=== PATIENT | female | born 1940 | race Caucasian/White ===

== ENCOUNTER 2017-06-25 17:34 | Inpatient (IN) | payer MEDICARE, BC ==
[~2017-06-25] VITALS: Ht 162.6 cm; Wt 80.6 kg
[~2017-06-25 17:34] MED LIST: ALBU8.5H8 INH; APIX5TAB PO; BECL8.7A7 INH; BRIM5DRO3 EACHEYE; CALC-116 PO; CALC250T PO; CHOL500015 PO; DABI150C PO; DIGO250T PO; DILT180C53 PO; FURO-93 PO; HYDR-3237 PO; INDA75CA INH; LACT1CAP35 PO; LATA2.5D2 EACHEYE; MELA2.5T PO; MELA5TAB19 PO; MULT-658 PO; OMEG1CAP23 PO; OMEP-110 PO; OMEP20TA9 PO; PRAS25TA PO; PROG200C15 PO; THYR65TA2 PO; THYR90TA PO; UBID200C7 PO; estrogen cream VG; omega 3 PO; qvar INH; testosterone cream
[2017-06-25] MEDS ORDERED: ALBUTEROL/IPRATROPIUM 2.5MG/0.5MG, 3 ML ONE (18:26)
[2017-06-25 18:29] LABS: HEMATOCRIT 39.3 % (34.6-47.8); HEMOGLOBIN 12.8 g/dL (11.7-16.4); WHITE BLOOD COUNT 14.1 x10^3/uL (3.4-10)
[2017-06-25] MEDS ORDERED: SODIUM CHLORIDE FLUSH 10ML SYR IVF ONE (18:30)
[2017-06-25] MEDS ORDERED: ALBUTEROL/IPRATROPIUM 2.5MG/0.5MG, 3 ML NPPB ONE (18:30)
[2017-06-25] MEDS ORDERED: PIPERACILLIN/TAZO/PMX 4.5GM 100 ML IVPB ONE (18:30)
[2017-06-25] MEDS ORDERED: ACETAMINOPHEN 325 MG TABLET PO ONE (18:30)
[2017-06-25] MEDS ORDERED: ACETAMINOPHEN 325 MG TABLET ONE (18:32)
[2017-06-25] MEDS ORDERED: PIPERACILLIN/TAZO/PMX 3.375GM 0 ML ONE (18:32)
[2017-06-25 18:41] LABS: ASPARTATE AMINO TRANSFERASE 21 U/L (15-37); BLOOD UREA NITROGEN 14 mg/dL (7-18)
[2017-06-25 18:47] LABS: IS PT STATUS REG ER OR PRE ER? YES
[2017-06-25] MEDS ORDERED: SODIUM CHLORIDE FLUSH 10ML SYR IVF PRN (19:30)
[2017-06-25 21:30] VITALS: BP 150/70
[2017-06-25] MEDS ORDERED: ONDANSETRON ODT 4 MG PO PRN (21:30)
[2017-06-25] MEDS ORDERED: GUAIFENESIN/DM 200-20MG, 10ML UDC PO PRN (21:30)
[2017-06-25] MEDS ORDERED: ACETAMINOPHEN 325 MG TABLET PO PRN (21:30)
[2017-06-25] MEDS ORDERED: DIPHENHYDRAMINE 25 MG CAPSULE PO PRN (21:30)
[2017-06-25] MEDS ORDERED: DOCUSATE 100 MG CAPSULE PO PRN (21:30)
[2017-06-25] MEDS ORDERED: ENALAPRILAT 1.25 MG/ML, 2ML IVPush PRN (21:30)
[2017-06-25] MEDS ORDERED: TEMPLATE NON-FORMULARY MED. (Brimonidine Tartrate** (Alphagan P**) 1 DROP(S)) EACHEYE SCH (21:30)
[2017-06-26] MEDS: AZITHROMYCIN 500 MG in SODIUM CHLORIDE 0.9% 250 ML IV SCH
[2017-06-26] MEDS: methylPREDNISolone SOD SUCC 40 MG/ML IVPush SCH ×4 (00:01→16:58)
[2017-06-26] MEDS: ENOXAPARIN 40 MG/0.4 ML SQ SCH ×2 (00:02→21:13)
[2017-06-26] MEDS: OMEPRAZOLE 20 MG CAPSULE.DR PO SCH ×3 (00:02→21:15)
[2017-06-26] MEDS: MELATONIN 5 MG TABLET PO SCH ×2 (00:02→21:15)
[2017-06-26] MEDS: LATANOPROST OPHTH 0.005%, 2.5ML EACHEYE SCH ×2 (00:03→21:15)
[2017-06-26 01:53] VITALS: BP 149/69
[2017-06-26] MEDS: ALBUTEROL/IPRATROPIUM 2.5MG/0.5MG, 3 ML NPPB SCH ×4 (02:33→19:20)
[2017-06-26] MEDS ORDERED: SODIUM BICARBONATE 4.2%, 5ML NPPB SCH (03:00)
[2017-06-26 05:10] LABS: HEMOGLOBIN 12.3 g/dL (11.7-16.4); WHITE BLOOD COUNT 12.2 x10^3/uL (3.4-10)
[2017-06-26 05:21] LABS: BLOOD UREA NITROGEN 13 mg/dL (7-18)
[2017-06-26] MEDS: CEFTRIAXONE PMX 2GM/50ML 50 ML IV SCH ×2 (06:00→18:13)
[2017-06-26] MEDS: OMEGA-3/FISH OIL CAPSULE PO SCH (08:39)
[2017-06-26] MEDS: CALCIUM CITRATE 950 MG TABLET PO SCH ×2 (08:39→21:15)
[2017-06-26] MEDS: CHOLECALCIFEROL 1,000 UNIT TABLET PO SCH (08:39)
[2017-06-26] MEDS: LACTOBACILLUS CHEW TABLET PO SCH (08:39)
[2017-06-26] MEDS: MULTIVITAMIN 1 TABLET PO SCH (08:39)
[2017-06-26] MEDS: POTASSIUM CHLORIDE 20 MEQ TAB.ER.PRT PO SCH (08:39)
[2017-06-26] MEDS: BRIMONIDINE TARTRATE EACHEYE SCH ×2 (08:40→21:00)
[2017-06-26] MEDS: THYROID PORK 65 MG PO SCH (08:41)
[2017-06-26] MEDS: PROGESTERONE MICRONIZED HOMEMEDPO SCH (08:41)
[2017-06-26] MEDS: PRASTERONE PO SCH (08:41)
[2017-06-26 08:55] VITALS: BP 118/57
[2017-06-26] MEDS ORDERED: UBIDECARENONE PO SCH (09:00)
[2017-06-26] MEDS ORDERED: FUROSEMIDE 20 MG TABLET PO SCH (09:00)
[2017-06-26] MEDS ORDERED: POTASSIUM CHLORIDE 20 MEQ TAB.ER.PRT PO ONE ×2 (12:30→17:00)
[2017-06-26 12:58] VITALS: BP 154/63
[2017-06-26 13:20] VITALS: BP 134/70
[2017-06-26] MEDS: SODIUM CHLORIDE 0.9% 1,000 ML IV SCH ×2 (14:00)
[2017-06-26 20:00] VITALS: BP 136/71
[2017-06-27] MEDS: AZITHROMYCIN 500 MG in SODIUM CHLORIDE 0.9% 250 ML IV SCH (00:33)
[2017-06-27] MEDS: methylPREDNISolone SOD SUCC 40 MG/ML IVPush SCH ×2 (00:34→06:15)
[2017-06-27 02:00] VITALS: BP 160/77
[2017-06-27] MEDS: ALBUTEROL/IPRATROPIUM 2.5MG/0.5MG, 3 ML NPPB SCH ×4 (03:15→19:55)
[2017-06-27 05:44] LABS: HEMATOCRIT 35.7 % (34.6-47.8); HEMOGLOBIN 11.5 g/dL (11.7-16.4); WHITE BLOOD COUNT 15.8 x10^3/uL (3.4-10)
[2017-06-27 05:48] LABS: BLOOD UREA NITROGEN 23 mg/dL (7-18)
[2017-06-27] MEDS: CEFTRIAXONE PMX 2GM/50ML 50 ML IV SCH (06:15)
[2017-06-27] MEDS: SODIUM CHLORIDE 0.9% 1,000 ML IV SCH (06:16)
[2017-06-27 06:36] VITALS: BP 143/69
[2017-06-27] MEDS: THYROID PORK 65 MG PO SCH (09:00)
[2017-06-27] MEDS: PRASTERONE PO SCH (09:00)
[2017-06-27] MEDS: PROGESTERONE MICRONIZED HOMEMEDPO SCH (09:00)
[2017-06-27] MEDS: BRIMONIDINE TARTRATE EACHEYE SCH ×2 (09:00→20:23)
[2017-06-27] MEDS: OMEGA-3/FISH OIL CAPSULE PO SCH (10:05)
[2017-06-27] MEDS: CHOLECALCIFEROL 1,000 UNIT TABLET PO SCH (10:05)
[2017-06-27] MEDS: OMEPRAZOLE 20 MG CAPSULE.DR PO SCH ×2 (10:05→20:22)
[2017-06-27] MEDS: LACTOBACILLUS CHEW TABLET PO SCH (10:06)
[2017-06-27] MEDS: CALCIUM CITRATE 950 MG TABLET PO SCH ×2 (10:06→20:22)
[2017-06-27] MEDS: POTASSIUM CHLORIDE 20 MEQ TAB.ER.PRT PO SCH (10:06)
[2017-06-27] MEDS: MULTIVITAMIN 1 TABLET PO SCH (10:06)
[2017-06-27] MEDS ORDERED: AZITHROMYCIN 500 MG TABLET PO ONE (11:30)
[2017-06-27 12:07] VITALS: BP 149/71
[2017-06-27] MEDS ORDERED: FUROSEMIDE 40 MG/4 ML IV ONE (15:30)
[2017-06-27 19:50] VITALS: BP 138/74
[2017-06-27] MEDS: LATANOPROST OPHTH 0.005%, 2.5ML EACHEYE SCH (20:22)
[2017-06-27] MEDS: MELATONIN 5 MG TABLET PO SCH (20:24)
[2017-06-27] MEDS: ENOXAPARIN 40 MG/0.4 ML SQ SCH (20:24)
[2017-06-28] MEDS: ALBUTEROL/IPRATROPIUM 2.5MG/0.5MG, 3 ML NPPB SCH ×5 (02:45→21:41)
[2017-06-28 06:45] VITALS: BP 160/76
[2017-06-28 08:19] LABS: BLOOD UREA NITROGEN 27 mg/dL (7-18)
[2017-06-28] MEDS: PRASTERONE PO SCH (09:00)
[2017-06-28] MEDS: POTASSIUM CHLORIDE 20 MEQ TAB.ER.PRT PO SCH (09:00)
[2017-06-28] MEDS: PROGESTERONE MICRONIZED HOMEMEDPO SCH (09:00)
[2017-06-28] MEDS: LACTOBACILLUS CHEW TABLET PO SCH (09:00)
[2017-06-28] MEDS: OMEGA-3/FISH OIL CAPSULE PO SCH (09:00)
[2017-06-28] MEDS: MULTIVITAMIN 1 TABLET PO SCH (09:00)
[2017-06-28] MEDS: CALCIUM CITRATE 950 MG TABLET PO SCH ×2 (09:00→20:15)
[2017-06-28] MEDS: OMEPRAZOLE 20 MG CAPSULE.DR PO SCH ×2 (09:00→20:15)
[2017-06-28] MEDS: BRIMONIDINE TARTRATE EACHEYE SCH ×2 (09:00→20:15)
[2017-06-28] MEDS: CHOLECALCIFEROL 1,000 UNIT TABLET PO SCH (09:00)
[2017-06-28] MEDS: THYROID PORK 65 MG PO SCH (09:00)
[2017-06-28 11:45] VITALS: BP 157/82
[2017-06-28] MEDS ORDERED: ADENOSINE IV PRN (12:30)
[2017-06-28] MEDS ORDERED: SODIUM CHLORIDE 0.9% IV PRN (12:30)
[2017-06-28] MEDS ORDERED: MIDAZOLAM 1 MG/ML, 5ML ONE (12:36)
[2017-06-28] MEDS ORDERED: FENTANYL PF 100 MCG/2ML ONE (12:36)
[2017-06-28] MEDS ORDERED: HEPARIN 1,000 UNITS/ML, 10ML ONE (12:37)
[2017-06-28] MEDS ORDERED: LIDOCAINE 2%, 20ML ONE (12:37)
[2017-06-28 14:00] VITALS: BP 147/83
[2017-06-28] MEDS: FUROSEMIDE 40 MG TABLET PO SCH (16:49)
[2017-06-28] MEDS: LATANOPROST OPHTH 0.005%, 2.5ML EACHEYE SCH (20:14)
[2017-06-28] MEDS: ENOXAPARIN 40 MG/0.4 ML SQ SCH (20:15)
[2017-06-28] MEDS: MELATONIN 5 MG TABLET PO SCH (20:15)
[2017-06-28 20:43] VITALS: BP 139/66
[2017-06-29 02:00] VITALS: BP 146/90
[2017-06-29] MEDS: ALBUTEROL/IPRATROPIUM 2.5MG/0.5MG, 3 ML NPPB SCH (04:05)
[2017-06-29 05:20] LABS: BLOOD UREA NITROGEN 27 mg/dL (7-18)
[2017-06-29 07:18] VITALS: BP 161/83
[2017-06-29] MEDS: PROGESTERONE MICRONIZED HOMEMEDPO SCH (09:00)
[2017-06-29] MEDS: THYROID PORK 65 MG PO SCH (09:00)
[2017-06-29] MEDS: BRIMONIDINE TARTRATE EACHEYE SCH (09:00)
[2017-06-29] MEDS: PRASTERONE PO SCH (09:00)
[2017-06-29] MEDS ORDERED: IPRA3AMP NPPB (09:32)
[2017-06-29] MEDS ORDERED: PRED20TA PO (09:32)
[2017-06-29] MEDS ORDERED: POTA20TA6 PO (09:32)
[2017-06-29] MEDS ORDERED: CLON-364 PO (09:32)
[2017-06-29] MEDS: OMEPRAZOLE 20 MG CAPSULE.DR PO SCH (09:59)
[2017-06-29] MEDS: CHOLECALCIFEROL 1,000 UNIT TABLET PO SCH (09:59)
[2017-06-29] MEDS: FUROSEMIDE 40 MG TABLET PO SCH (09:59)
[2017-06-29] MEDS: MULTIVITAMIN 1 TABLET PO SCH (09:59)
[2017-06-29] MEDS: LACTOBACILLUS CHEW TABLET PO SCH (09:59)
[2017-06-29] MEDS: POTASSIUM CHLORIDE 20 MEQ TAB.ER.PRT PO SCH (10:00)
[2017-06-29] MEDS: CALCIUM CITRATE 950 MG TABLET PO SCH (10:00)
[2017-06-29] MEDS: OMEGA-3/FISH OIL CAPSULE PO SCH (10:00)
[2017-06-29] MEDS ORDERED: FURO20TA3 PO (11:39)
== END 2017-06-29 12:15 | disposition home or self-care (01) | DRG 286 ==
LOC: ED 19:28 → EDIP 19:59 → 4NOR 20:45 → 4EST 06-26 13:19 → DCLOUNGE 06-29 11:21
PROVIDERS: ADMIT Hospitalist; ATTEND Internal Medicine
PROC: 5A09357 Assistance with Respiratory Ventilation, Less than 24 Consecutive Hours, Continuous Positive Airway Pressure (ICD-10-PCS; principal; 2017-06-27)
PROC: 4A023N6 Measurement of Cardiac Sampling and Pressure, Right Heart, Percutaneous Approach (ICD-10-PCS; 2017-06-28)
PROC: B2111ZZ Fluoroscopy of Multiple Coronary Arteries using Low Osmolar Contrast (ICD-10-PCS; 2017-06-28)
PROC: 02HQ32Z Insertion of Monitoring Device into Right Pulmonary Artery, Percutaneous Approach (ICD-10-PCS; 2017-06-28)
PROC: 4A133B3 Monitoring of Arterial Pressure, Pulmonary, Percutaneous Approach (ICD-10-PCS; 2017-06-28)
DX: I11.0 Hypertensive heart disease with heart failure (principal); J96.21 Acute and chronic respiratory failure with hypoxia; D68.69 Other thrombophilia; I27.2 Other secondary pulmonary hypertension; E87.1 Hypo-osmolality and hyponatremia; J44.1 Chronic obstructive pulmonary disease with (acute) exacerbation; I50.9 Heart failure, unspecified; E87.6 Hypokalemia; F06.4 Anxiety disorder due to known physiological condition; G47.33 Obstructive sleep apnea (adult) (pediatric); I16.0 Hypertensive urgency; I34.0 Nonrheumatic mitral (valve) insufficiency; I48.91 Unspecified atrial fibrillation; Z87.891 Personal history of nicotine dependence; Z90.49 Acquired absence of other specified parts of digestive tract; Z95.0 Presence of cardiac pacemaker; Z99.81 Dependence on supplemental oxygen; Z88.2 Allergy status to sulfonamides; Z88.6 Allergy status to analgesic agent
CPT/HCPCS: 36415; 71010; 80048; 80053; 81001; 82040; 83605; 83880; 84145; 84484; 85025; 87040; 87086; 93005; 93306; 93451; 94640; 94660; 99156; C1894; J0456; J0696; J1644; J1650; J1940; J2250; J2543; J3010; J3490; J7620; J2920; J7030; J7050; J7512

== ENCOUNTER 2018-02-11 12:11 | Inpatient (IN) | payer MEDICARE, BC ==
[~2018-02-11] VITALS: Ht 162.6 cm; Wt 83.9 kg
[~2018-02-11 12:11] MED LIST changes: +CLON-364 PO; +FURO20TA3 PO; +IPRA3AMP NPPB; +POTA20TA6 PO; +PRED20TA PO
[2018-02-11] MEDS ORDERED: ASPIRIN 81 MG TABLET CHEW PO ONE (12:30)
[2018-02-11] MEDS ORDERED: SODIUM CHLORIDE FLUSH 10ML SYR IVF ONE (12:30)
[2018-02-11] MEDS ORDERED: ALBUTEROL/IPRATROPIUM 2.5MG/0.5MG, 3 ML NPPB ONE (12:30)
[2018-02-11] MEDS ORDERED: ASPIRIN 81 MG TABLET EC ONE (12:35)
[2018-02-11] MEDS ORDERED: ASPIRIN 81 MG TABLET CHEW ONE (12:39)
[2018-02-11] MEDS ORDERED: ESTROGEN CREAM (12:44)
[2018-02-11] MEDS ORDERED: TESTOSTERONE CREAM (12:44)
[2018-02-11] MEDS ORDERED: UMEC62.5 INH (12:46)
[2018-02-11] MEDS ORDERED: ALBU8.5H8 INH (12:47)
[2018-02-11] MEDS ORDERED: ALBUTEROL/IPRATROPIUM 2.5MG/0.5MG, 3 ML ONE (12:48)
[2018-02-11] MEDS ORDERED: TADA20TA33 PO (12:48)
[2018-02-11] MEDS ORDERED: APIX5TAB PO (12:48)
[2018-02-11] MEDS ORDERED: SPIR50TA2 PO (12:49)
[2018-02-11] MEDS ORDERED: CALC-116 PO (12:50)
[2018-02-11 12:51] LABS: BASOPHILS # (AUTO) 0.03 x10^3/uL (0-0.1); BASOPHILS % (AUTO) 0 % (0-1); EOSINOPHILS # (AUTO) 0.18 x10^3/uL (0-0.4); EOSINOPHILS % (AUTO) 2 % (1-7); LYMPHOCYTES # (AUTO) 1.33 x10^3/uL (1-3.4); LYMPHOCYTES % (AUTO) 16 % (22-44); MD NO; MEAN CORPUSCULAR HEMOGLOBIN 32.4 pg (27.0-34.8); MEAN CORPUSCULAR HGB CONC 33.3 g/dL (32.4-35.8); MEAN CORPUSCULAR VOLUME 97.3 fL (80-100); MONOCYTES # (AUTO) 0.77 x10^3/uL (0.2-0.8); MONOCYTES % (AUTO) 9 % (2-9); NEUTROPHILS # (AUTO) 5.94 x10^3/uL (1.8-6.8); NEUTROPHILS % (AUTO) 72 % (42-75); PLATELET COUNT 229 x10^3/uL (130-400); RED BLOOD COUNT 4.22 x10^6/uL (3.82-5.3); RED CELL DISTRIBUTION WIDTH 13.2 % (9.6-15.2)
[2018-02-11] MEDS ORDERED: DOXY100T PO (12:52)
[2018-02-11 12:58] LABS: ALBUMIN 3.3 g/dL (3.4-5.0); ANION GAP 10 mmol/L (5-15); CALCIUM 8.9 mg/dL (8.5-10.1); CHLORIDE 110 mmol/L (98-107); CREATININE 1.19 mg/dL (0.55-1.02)
[2018-02-11 13:02] LABS: TROPONIN I < 0.015 ng/mL (0.000-0.045)
[2018-02-11] MEDS ORDERED: OMNIPAQUE 350 MG/ML, 100ML BOTTLE ONE (14:15)
[2018-02-11] MEDS ORDERED: CEFTRIAXONE PMX 1GM/50ML 50 ML IV ONE (14:30)
[2018-02-11] MEDS ORDERED: AZITHROMYCIN 500 MG in SODIUM CHLORIDE 0.9% 250 ML IV ONE (14:30)
[2018-02-11] MEDS ORDERED: CEFTRIAXONE PMX 1GM/50ML 50 ML ONE (14:52)
[2018-02-11] MEDS ORDERED: ACETAMINOPHEN 325 MG TABLET PO PRN (15:00)
[2018-02-11] MEDS ORDERED: FUROSEMIDE 20 MG/2 ML IV ONE (15:00)
[2018-02-11] MEDS ORDERED: POTASSIUM CHLORIDE 20 MEQ TAB.ER.PRT PO ONE (15:00)
[2018-02-11] MEDS ORDERED: ONDANSETRON 2MG/ML, 2ML IVPush PRN (15:00)
[2018-02-11] MEDS ORDERED: ALBUTEROL/IPRATROPIUM 2.5MG/0.5MG, 3 ML NPPB PRN (15:30)
[2018-02-11] MEDS ORDERED: FURO80TA77 PO (15:54)
[2018-02-11] MEDS ORDERED: POTA10TA11 PO (15:54)
[2018-02-11] MEDS ORDERED: ALBUTEROL SULFATE 2.5 MG/3 ML NPPB SCH (16:00)
[2018-02-11] MEDS ORDERED: IPRATROPIUM 0.5 MG/2.5 ML INHA NPPB PRN (16:00)
[2018-02-11] MEDS: methylPREDNISolone SOD SUCC 125 MG/2 ML IVPush SCH ×2 (16:26→22:53)
[2018-02-11 17:11] VITALS: BP 140/59
[2018-02-11 19:14] VITALS: BP 127/54
[2018-02-11] MEDS: ALBUTEROL/IPRATROPIUM 2.5MG/0.5MG, 3 ML NPPB SCH (19:30)
[2018-02-11] MEDS: APIXABAN 5 MG TABLET PO SCH (20:10)
[2018-02-11] MEDS: TEMAZEPAM 15 MG CAPSULE PO PRN (20:10)
[2018-02-11] MEDS: GUAIFENESIN ER 600 MG TABLET PO SCH (20:10)
[2018-02-11] MEDS: CALCIUM/VITAMIN D3 250-125 TABLET PO SCH (20:10)
[2018-02-11] MEDS: DOXYCYCLINE 100 MG in DEXTROSE 5% 250 ML IV SCH (20:25)
[2018-02-11] MEDS: BRIMONIDINE TARTRATE EACHEYE SCH (20:42)
[2018-02-11] MEDS ORDERED: TEMPLATE NON-FORMULARY MED. (Brimonidine Tartrate** (Alphagan P**) 1 DROP(S)) EACHEYE SCH (21:00)
[2018-02-11] MEDS: LATANOPROST OPHTH 0.005%, 2.5ML EACHEYE SCH (21:00)
[2018-02-11 23:34] VITALS: BP 140/59
[2018-02-12 02:57] VITALS: BP 131/76
[2018-02-12] MEDS: methylPREDNISolone SOD SUCC 125 MG/2 ML IVPush SCH ×3 (05:05→17:52)
[2018-02-12 05:33] LABS: MEAN CORPUSCULAR HEMOGLOBIN 32.5 pg (27.0-34.8); MEAN CORPUSCULAR HGB CONC 33.5 g/dL (32.4-35.8); MEAN CORPUSCULAR VOLUME 97.2 fL (80-100); MEAN PLATELET VOLUME 8.2 fL (7.4-10.4); PLATELET COUNT 229 x10^3/uL (130-400); RED BLOOD COUNT 3.87 x10^6/uL (3.82-5.3); RED CELL DISTRIBUTION WIDTH 12.9 % (9.6-15.2)
[2018-02-12 05:40] LABS: ANION GAP 10 mmol/L (5-15); CALCIUM 8.6 mg/dL (8.5-10.1); CHLORIDE 106 mmol/L (98-107)
[2018-02-12 05:53] LABS: BASOPHILS % (AUTO) 0 % (0-1); EOSINOPHILS % (AUTO) 0 % (1-7); LYMPHOCYTES # (AUTO) 0.56 x10^3/uL (1-3.4); LYMPHOCYTES % (AUTO) 11 % (22-44); MD SCAN; MONOCYTES # (AUTO) 0.12 x10^3/uL (0.2-0.8); MONOCYTES % (AUTO) 2 % (2-9); NEUTROPHILS # (AUTO) 4.49 x10^3/uL (1.8-6.8); NEUTROPHILS % (AUTO) 87 % (42-75)
[2018-02-12 07:09] VITALS: BP 158/75
[2018-02-12] MEDS: ALBUTEROL/IPRATROPIUM 2.5MG/0.5MG, 3 ML NPPB SCH ×4 (07:25→18:50)
[2018-02-12] MEDS: DOXYCYCLINE 100 MG in DEXTROSE 5% 250 ML IV SCH ×2 (08:30→21:57)
[2018-02-12] MEDS: TADALAFIL 20 MG PO SCH (09:00)
[2018-02-12] MEDS: THYROID PORK 65 MG PO SCH (09:00)
[2018-02-12] MEDS ORDERED: FUROSEMIDE 20 MG TABLET PO SCH (09:00)
[2018-02-12] MEDS: BRIMONIDINE TARTRATE EACHEYE SCH ×2 (09:00→21:00)
[2018-02-12] MEDS: CALCIUM/VITAMIN D3 250-125 TABLET PO SCH ×2 (09:08→21:45)
[2018-02-12] MEDS: GUAIFENESIN ER 600 MG TABLET PO SCH ×2 (09:09→21:44)
[2018-02-12] MEDS: APIXABAN 5 MG TABLET PO SCH ×2 (09:09→21:44)
[2018-02-12] MEDS: LACTOBACILLUS CHEW TABLET PO SCH (09:09)
[2018-02-12] MEDS: POTASSIUM CHLORIDE 20 MEQ TAB.ER.PRT PO SCH (09:09)
[2018-02-12] MEDS ORDERED: FUROSEMIDE 20 MG TABLET PO ONE (09:30)
[2018-02-12] MEDS: SPIRONOLACTONE 50 MG TABLET PO SCH (10:10)
[2018-02-12 12:40] VITALS: BP 135/59
[2018-02-12 19:12] VITALS: BP 154/63
[2018-02-12] MEDS ORDERED: LORazepam 1MG TABLET PO ONE (19:30)
[2018-02-12] MEDS: TEMAZEPAM 15 MG CAPSULE PO PRN (21:45)
[2018-02-12] MEDS: LATANOPROST OPHTH 0.005%, 2.5ML EACHEYE SCH (21:45)
[2018-02-13] VITALS (9 sets, daily range): BP systolic 138–172; BP diastolic 53–85
[2018-02-13] MEDS: methylPREDNISolone SOD SUCC 125 MG/2 ML IVPush SCH ×4 (00:45→21:23)
[2018-02-13 05:43] LABS: BASOPHILS # (AUTO) 0.01 x10^3/uL (0-0.1); BASOPHILS % (AUTO) 0 % (0-1); EOSINOPHILS % (AUTO) 0 % (1-7); LYMPHOCYTES # (AUTO) 0.86 x10^3/uL (1-3.4); LYMPHOCYTES % (AUTO) 6 % (22-44); MD NO; MEAN CORPUSCULAR HEMOGLOBIN 32.2 pg (27.0-34.8); MEAN CORPUSCULAR HGB CONC 33.5 g/dL (32.4-35.8); MEAN CORPUSCULAR VOLUME 96.3 fL (80-100); MEAN PLATELET VOLUME 7.9 fL (7.4-10.4); MONOCYTES # (AUTO) 0.49 x10^3/uL (0.2-0.8); MONOCYTES % (AUTO) 3 % (2-9); NEUTROPHILS # (AUTO) 13.46 x10^3/uL (1.8-6.8); NEUTROPHILS % (AUTO) 91 % (42-75); PLATELET COUNT 265 x10^3/uL (130-400); RED BLOOD COUNT 4.11 x10^6/uL (3.82-5.3); RED CELL DISTRIBUTION WIDTH 13.3 % (9.6-15.2)
[2018-02-13 05:50] LABS: ANION GAP 9 mmol/L (5-15); CALCIUM 9.2 mg/dL (8.5-10.1); CHLORIDE 105 mmol/L (98-107); CREATININE 1.21 mg/dL (0.55-1.02)
[2018-02-13] MEDS: ALBUTEROL/IPRATROPIUM 2.5MG/0.5MG, 3 ML NPPB SCH ×4 (07:18→19:33)
[2018-02-13] MEDS ORDERED: SODIUM CHLORIDE NASAL SPRAY 45ML BOTTLE NAS PRN (07:30)
[2018-02-13] MEDS: POTASSIUM CHLORIDE 20 MEQ TAB.ER.PRT PO SCH (08:42)
[2018-02-13] MEDS: FUROSEMIDE 20 MG/2 ML IV SCH ×2 (08:42→12:49)
[2018-02-13] MEDS: APIXABAN 5 MG TABLET PO SCH ×2 (08:43→21:18)
[2018-02-13] MEDS: SPIRONOLACTONE 50 MG TABLET PO SCH (08:43)
[2018-02-13] MEDS: CALCIUM/VITAMIN D3 250-125 TABLET PO SCH ×2 (08:44→21:18)
[2018-02-13] MEDS: GUAIFENESIN ER 600 MG TABLET PO SCH ×2 (08:44→21:18)
[2018-02-13] MEDS: LACTOBACILLUS CHEW TABLET PO SCH (08:44)
[2018-02-13] MEDS: BRIMONIDINE TARTRATE EACHEYE SCH ×2 (08:47→21:00)
[2018-02-13] MEDS: THYROID PORK 65 MG PO SCH (08:48)
[2018-02-13] MEDS: TADALAFIL 20 MG PO SCH (08:48)
[2018-02-13] MEDS ORDERED: FUROSEMIDE 20 MG TABLET PO SCH (09:00)
[2018-02-13] MEDS: DOXYCYCLINE 100 MG in DEXTROSE 5% 250 ML IV SCH ×2 (09:05→21:17)
[2018-02-13] MEDS: CEFTRIAXONE PMX 1GM/50ML 50 ML IV SCH (14:29)
[2018-02-13] MEDS: LATANOPROST OPHTH 0.005%, 2.5ML EACHEYE SCH (21:18)
[2018-02-13] MEDS: TEMAZEPAM 15 MG CAPSULE PO PRN (21:18)
[2018-02-14] VITALS (9 sets, daily range): BP systolic 151–178; BP diastolic 71–83
[2018-02-14] MEDS: methylPREDNISolone SOD SUCC 125 MG/2 ML IVPush SCH ×2 (05:15→15:22)
[2018-02-14 05:53] LABS: BASOPHILS % (AUTO) 0 % (0-1); EOSINOPHILS % (AUTO) 0 % (1-7); LYMPHOCYTES # (AUTO) 0.99 x10^3/uL (1-3.4); LYMPHOCYTES % (AUTO) 6 % (22-44); MD NO; MEAN CORPUSCULAR HEMOGLOBIN 31.7 pg (27.0-34.8); MEAN CORPUSCULAR HGB CONC 32.7 g/dL (32.4-35.8); MEAN PLATELET VOLUME 7.9 fL (7.4-10.4); MONOCYTES # (AUTO) 0.74 x10^3/uL (0.2-0.8); MONOCYTES % (AUTO) 4 % (2-9); NEUTROPHILS # (AUTO) 14.96 x10^3/uL (1.8-6.8); NEUTROPHILS % (AUTO) 90 % (42-75); PLATELET COUNT 301 x10^3/uL (130-400); RED BLOOD COUNT 4.45 x10^6/uL (3.82-5.3); RED CELL DISTRIBUTION WIDTH 13.5 % (9.6-15.2)
[2018-02-14 06:05] LABS: ANION GAP 8 mmol/L (5-15); CALCIUM 9.1 mg/dL (8.5-10.1); CHLORIDE 103 mmol/L (98-107)
[2018-02-14 06:06] LABS: CREATININE 1.12 mg/dL (0.55-1.02)
[2018-02-14] MEDS: ALBUTEROL/IPRATROPIUM 2.5MG/0.5MG, 3 ML NPPB SCH ×3 (06:49→20:00)
[2018-02-14] MEDS: BRIMONIDINE TARTRATE EACHEYE SCH ×2 (09:00→21:00)
[2018-02-14] MEDS: TADALAFIL 20 MG PO SCH (09:00)
[2018-02-14] MEDS: THYROID PORK 65 MG PO SCH (09:00)
[2018-02-14] MEDS: LACTOBACILLUS CHEW TABLET PO SCH (09:02)
[2018-02-14] MEDS: CALCIUM/VITAMIN D3 250-125 TABLET PO SCH ×2 (09:02→20:58)
[2018-02-14] MEDS: POTASSIUM CHLORIDE 20 MEQ TAB.ER.PRT PO SCH (09:02)
[2018-02-14] MEDS: SPIRONOLACTONE 50 MG TABLET PO SCH (09:03)
[2018-02-14] MEDS: APIXABAN 5 MG TABLET PO SCH ×2 (09:03→20:58)
[2018-02-14] MEDS: GUAIFENESIN ER 600 MG TABLET PO SCH ×2 (09:03→20:58)
[2018-02-14] MEDS: DOXYCYCLINE 100 MG in DEXTROSE 5% 250 ML IV SCH ×2 (09:05→20:58)
[2018-02-14] MEDS ORDERED: METOPROLOL TARTRATE 25 MG TABLET ONE (15:18)
[2018-02-14] MEDS: METOPROLOL TARTRATE 25 MG TABLET PO SCH ×2 (15:22→20:57)
[2018-02-14 15:33] LABS: FREE T4 (FREE THYROXINE) 0.77 ng/dL (0.76-1.46); THYROID STIMULATING HORMONE 0.65 mIU/L (0.358-3.740)
[2018-02-14] MEDS: CEFTRIAXONE PMX 1GM/50ML 50 ML IV SCH (15:44)
[2018-02-14] MEDS: LATANOPROST OPHTH 0.005%, 2.5ML EACHEYE SCH (20:57)
[2018-02-14] MEDS: TEMAZEPAM 15 MG CAPSULE PO PRN (23:29)
[2018-02-15 01:33] VITALS: BP 133/73
[2018-02-15] MEDS: methylPREDNISolone SOD SUCC 125 MG/2 ML IVPush SCH ×2 (02:45→14:00)
[2018-02-15 05:29] LABS: BASOPHILS % (AUTO) 0 % (0-1); EOSINOPHILS % (AUTO) 0 % (1-7); LYMPHOCYTES # (AUTO) 1.29 x10^3/uL (1-3.4); LYMPHOCYTES % (AUTO) 10 % (22-44); MD NO; MEAN CORPUSCULAR HEMOGLOBIN 32.3 pg (27.0-34.8); MEAN CORPUSCULAR VOLUME 97.6 fL (80-100); MEAN PLATELET VOLUME 7.7 fL (7.4-10.4); MONOCYTES # (AUTO) 0.63 x10^3/uL (0.2-0.8); MONOCYTES % (AUTO) 5 % (2-9); NEUTROPHILS # (AUTO) 10.98 x10^3/uL (1.8-6.8); NEUTROPHILS % (AUTO) 85 % (42-75); PLATELET COUNT 300 x10^3/uL (130-400); RED BLOOD COUNT 4.21 x10^6/uL (3.82-5.3); RED CELL DISTRIBUTION WIDTH 13.5 % (9.6-15.2)
[2018-02-15 05:38] LABS: ANION GAP 7 mmol/L (5-15); CALCIUM 8.7 mg/dL (8.5-10.1); CHLORIDE 104 mmol/L (98-107)
[2018-02-15 05:39] LABS: CREATININE 1.28 mg/dL (0.55-1.02)
[2018-02-15] MEDS: METOPROLOL TARTRATE 25 MG TABLET PO SCH (06:39)
[2018-02-15] MEDS: ALBUTEROL/IPRATROPIUM 2.5MG/0.5MG, 3 ML NPPB SCH ×3 (06:57→14:18)
[2018-02-15 07:32] VITALS: BP 154/83
[2018-02-15 07:34] VITALS: BP 139/72
[2018-02-15 07:36] VITALS: BP 149/81
[2018-02-15] MEDS: TADALAFIL 20 MG PO SCH (09:00)
[2018-02-15] MEDS: THYROID PORK 65 MG PO SCH (09:00)
[2018-02-15] MEDS: BRIMONIDINE TARTRATE EACHEYE SCH (09:00)
[2018-02-15] MEDS: POTASSIUM CHLORIDE 20 MEQ TAB.ER.PRT PO SCH (10:07)
[2018-02-15] MEDS: APIXABAN 5 MG TABLET PO SCH (10:07)
[2018-02-15] MEDS: CALCIUM/VITAMIN D3 250-125 TABLET PO SCH (10:07)
[2018-02-15] MEDS: LACTOBACILLUS CHEW TABLET PO SCH (10:08)
[2018-02-15] MEDS: GUAIFENESIN ER 600 MG TABLET PO SCH (10:08)
[2018-02-15] MEDS: DOXYCYCLINE 100 MG in DEXTROSE 5% 250 ML IV SCH (10:13)
[2018-02-15] MEDS ORDERED: METOPROLOL TARTRATE 25 MG TABLET PO ONE (10:30)
[2018-02-15] MEDS ORDERED: DOXYCYCLINE 100MG TABLET PO SCH (11:00)
[2018-02-15] MEDS ORDERED: GUAI600T31 PO (13:27)
[2018-02-15] MEDS ORDERED: METO25TA35 PO (13:27)
[2018-02-15] MEDS ORDERED: DOXY100T PO (13:27)
[2018-02-15] MEDS ORDERED: CEFD300C37 PO (13:27)
[2018-02-15 13:34] VITALS: BP 146/79
[2018-02-15] MEDS ORDERED: CEFDINIR 300 MG CAPSULE PO SCH (14:00)
[2018-02-15] MEDS ORDERED: ONDANSETRON ODT 4 MG PO PRN (14:00)
[2018-02-15] MEDS ORDERED: METOPROLOL TARTRATE 25 MG TABLET PO SCH (18:00)
== END 2018-02-15 17:10 | disposition home or self-care (01) | DRG 193 ==
LOC: ED 14:21 → EDIP 14:26 → 3NE 15:18 → 4WST 02-14 08:10
PROVIDERS: ADMIT Hospitalist; ATTEND Hospitalist
PROC: 5A09357 Assistance with Respiratory Ventilation, Less than 24 Consecutive Hours, Continuous Positive Airway Pressure (ICD-10-PCS; 2018-02-14)
PROC: 5A09357 Assistance with Respiratory Ventilation, Less than 24 Consecutive Hours, Continuous Positive Airway Pressure (ICD-10-PCS; principal; 2018-02-15)
DX: J18.1 Lobar pneumonia, unspecified organism (principal); J96.01 Acute respiratory failure with hypoxia; N17.9 Acute kidney failure, unspecified; E44.0 Moderate protein-calorie malnutrition; I11.0 Hypertensive heart disease with heart failure; I27.20 Pulmonary hypertension, unspecified; I50.9 Heart failure, unspecified; I48.91 Unspecified atrial fibrillation; J44.0 Chronic obstructive pulmonary disease with (acute) lower respiratory infection; G47.33 Obstructive sleep apnea (adult) (pediatric); J44.1 Chronic obstructive pulmonary disease with (acute) exacerbation; M75.100 Unspecified rotator cuff tear or rupture of unspecified shoulder, not specified as traumatic; R00.0 Tachycardia, unspecified; R59.0 Localized enlarged lymph nodes; R73.9 Hyperglycemia, unspecified; Z79.82 Long term (current) use of aspirin; Z87.891 Personal history of nicotine dependence; Z95.0 Presence of cardiac pacemaker; Z90.49 Acquired absence of other specified parts of digestive tract; Z88.2 Allergy status to sulfonamides; Z88.5 Allergy status to narcotic agent; Z68.31 Body mass index [BMI] 31.0-31.9, adult
CPT/HCPCS: 36415; 36600; 71045; 71275; 80048; 82040; 82803; 83735; 83880; 84100; 84439; 84443; 84484; 85025; 85379; 87040; 93005; 94640; 96374; 99285; J0456; J0696; J7060; J7620; Q9967; J1940; J2930; J7050; J7512

== ENCOUNTER → 2018-07-23 | Outpatient (CLI) | payer MEDICARE, BC ==
[~2018-07-23] MED LIST changes: +CEFD300C37 PO; -CLON-364 PO; +CLON0.5T11 PO; +DOXY100T PO; +ESTROGEN CREAM; +FURO80TA77 PO; +GUAI600T31 PO; -IPRA3AMP NPPB; +IPRA3AMP30 NPPB; +METO25TA35 PO; +POTA10TA11 PO; +SPIR50TA4 PO; +TADA20TA33 PO; +TESTOSTERONE CREAM; +UMEC62.5 INH
== END | disposition home or self-care (01) ==
LOC: CVU 12:34
PROVIDERS: ATTEND Internal Medicine Cardiovascular Disease
DX: R60.0 Localized edema (principal); J44.9 Chronic obstructive pulmonary disease, unspecified
CPT/HCPCS: 93970